=== PATIENT | female | born 1960 | race American Indian/Alaskan Native ===

== ENCOUNTER 2018-05-14 09:22 | Inpatient (IN) | payer OTHER ==
--- NOTE | 2018-05-14 09:41 | Cat Scan Report ---
CT HEAD WITHOUT CONTRAST: HISTORY: Neurological deficit. TECHNIQUE: Sequential 2.5mm CT images. COMPARISON: none. FINDINGS: Cerebral Parenchyma: Within normal limits. Cerebellum: Within normal limits. Brainstem: Within normal limits. Ventricles: Normal. Sella: Normal. Extra-axial spaces: Normal. Basal Cisterns: Normal. Intracranial Hemorrhage: None. Midline Shift: None. Calvarium: Normal. Sinuses: 2 cm mucous retention cyst in the inferior right maxillary sinus is partially imaged. The remaining sinuses are unremarkable. Mastoid Air Cells: Normal. Visualized Orbits: Normal. IMPRESSION: Cranial CT scan within normal limits. These findings were discussed with Dr. Padgett in the emergency department at 0936 hours.
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
[2018-05-14 09:48] LABS: Basophils # (Auto) 0.1 K/mm3 (0.0-0.1); Eosinophils # (Auto) 0.2 K/mm3 (0.0-0.4); Eosinophils % (Auto) 4.4 % (0.0-4.3); Hematocrit 38.3 % (30.3-42.9); Hemoglobin 12.6 gm/dl (10.1-14.3); Lymphocytes # (Auto) 1.4 K/mm3 (1.2-5.4); Lymphocytes % (Auto) 24.7 % (13.4-35.0); Mean Corpuscular HGB Conc 33 % (30-34); Mean Corpuscular Volume 85 fl (79-97); Monocytes # (Auto) 0.4 K/mm3 (0.0-0.8); Monocytes % (Auto) 7.1 % (0.0-7.3); Platelet Count 279 K/mm3 (140-440); Red Cell Distribution Width 13.2 % (13.2-15.2)
[2018-05-14 09:58] LABS: INR 0.91 (0.87-1.13); Partial Thromboplastin Time 26.3 Sec. (24.2-36.6)
[2018-05-14 09:59] LABS: Thrombin Time 16.3 Sec. (15.1-19.6)
[2018-05-14 10:09] LABS: BUN/Creatinine Ratio 13; Blood Urea Nitrogen 20 mg/dL (7-17); Calcium 9.5 mg/dL (8.4-10.2); Hemolysis Index 12
[2018-05-14] MEDS ORDERED: NACL 0.9% IV ONE (10:19)
[2018-05-14] MEDS ORDERED: ACTIVASE IV ONE ×2 (10:19)
--- NOTE | 2018-05-14 12:07 | Cat Scan Report ---
CTA NECK: HISTORY: Acute CVA. TECHNIQUE: Helical CT following IV contrast. Sagittal and coronal reformatted images. 3D volume rendering technique. Stenosis was calculated using NASCET criteria. FINDINGS: The visualized aortic arch, innominate artery and proximal bilateral subclavian arteries are widely patent with less than 20% stenosis. Within the right carotid system: Less than 20% stenosis. Within the left carotid system: Less than 20% stenosis. The cervical vertebral arteries are patent with less than 20% stenosis. The right vertebral artery is dominant. IMPRESSION: Unremarkable CTA of the neck.
--- NOTE | 2018-05-14 12:12 | Cat Scan Report ---
CTA HEAD: HISTORY: Acute CVA. TECHNIQUE: Helical CT images after IV contrast with 0.625mm reformations. Sagittal and coronal reformats. Rotational MIP images. 3D volume rendering technique. FINDINGS: The arterial structures of the anterior and posterior circulations are patent throughout. No evidence for stenosis, occlusion or aneurysm. The right vertebral artery is dominant. The basilar artery is ectatic but patent. IMPRESSION: Unremarkable CTA head. No evidence for large vessel occlusion, dissection or aneurysm.
[2018-05-14] MEDS ORDERED: NORMODYNE IV ONE ×2 (13:33→13:38)
--- NOTE | 2018-05-14 21:32 | Event Note ---
Date: 05/14/18 See Dictated H/p in reports Acute CVA HIV
[2018-05-15] MEDS ORDERED: DILAUDID IV PRN (01:27)
[2018-05-15] MEDS ORDERED: ZOFRAN IV PRN (01:27)
[2018-05-15] MEDS ORDERED: SODIUM CHLORIDE FLUSH SYRINGE 10 ML IV PRN ×2 (01:27→01:29)
[2018-05-15] MEDS ORDERED: PERCOCET 5/325 PO PRN (01:27)
[2018-05-15] MEDS ORDERED: TYLENOL PO PRN (01:27)
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
[2018-05-15] MEDS: KEPPRA PO SCH ×3 (08:14→21:17)
[2018-05-15] MEDS: PREZISTA PO SCH ×3 (08:14→21:17)
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
--- NOTE | 2018-05-15 09:58 | Progress Note ---
Assessment and Plan Assessment and plan: --Acute CVA; s/p TPA continue current management Aspirin and DVT prophylaxis 24 hours after TPA, Follow neurology evaluation and recommendations MRI MRA this at the neuro workup Physical therapy and occupational therapy rehabilitation --Acute kidney injury; vasomotor nephropathy, gentle hydration, monitor renal function Avoid nephrotoxins --History of seizure disorder ; seizure precautions, continue antiepileptic medications and --History of HIV; continue current management, consult ID for assistance --Hypertension; moderate control, continue current antihypertensives and PRN meds --Dyslipidemia; continue statin. --DVT prophylaxis; Lovenox after 24 hours post TPA Discharge planning case management Closely monitor the patient and adjust the management as needed Critical care time 35 minutes The high probability of a clinically significant, sudden or life threatening deterioration of the [ Neuro, renal, ID and metabolic ] system(s) required my full and direct attention, intervention and personal management.The aggregate critical care time was [35 ] minutes. This time is in addition to time spent performing reported procedures but includes the following: [x] Data Review and interpretation [x] Patient assessment and monitoring of vital signs [x] Documentation [x] Medication orders and management History Interval history: Patient seen and examined medical records reviewed Patient was admitted with acute CVA status post TPA, also has history of HIV, seizures Patient alert and awake slow speech and not in acute distress Vital Signs reviewed Pending neurology evaluation Hospitalist Physical - Constitutional Vitals: Temp Pulse Resp BP Pulse Ox 98.6 F 115 H 10 L 148/96 99 05/15/18 08:00 05/15/18 08:30 05/15/18 08:30 05/15/18 08:30 05/15/18 08:30 General appearance: Present: no acute distress, cachectic, other (slow speech) - EENT Eyes: Present: PERRL, EOM intact - Neck Neck: Present: supple, normal ROM - Respiratory Respiratory effort: normal Respiratory: bilateral: diminished, negative: rales, rhonchi, wheezing - Cardiovascular Rhythm: regular Heart Sounds: Present: S1 & S2 - Extremities Extremities: no ischemia, No edema - Abdominal General gastrointestinal: soft, non-tender, non-distended, normal bowel sounds - Integumentary Integumentary: Present: clear, warm - Psychiatric Psychiatric: appropriate mood/affect, other (she minimally communicative) - Neurologic Neurologic: other (minimal left-sided weakness, slow speech) Results - Labs CBC & Chem 7: 05/14/18 09:39 05/14/18 09:39 Labs: Laboratory Last Values WBC 5.6 K/mm3 (4.5-11.0) 05/14/18 09:39 RBC 4.50 M/mm3 (3.65-5.03) 05/14/18 09:39 Hgb 12.6 gm/dl (10.1-14.3) 05/14/18 09:39 Hct 38.3 % (30.3-42.9) 05/14/18 09:39 MCV 85 fl (79-97) 05/14/18 09:39 MCH 28 pg (28-32) 05/14/18 09:39 MCHC 33 % (30-34) 05/14/18 09:39 RDW 13.2 % (13.2-15.2) 05/14/18 09:39 Plt Count 279 K/mm3 (140-440) 05/14/18 09:39 Lymph % (Auto) 24.7 % (13.4-35.0) 05/14/18 09:39 [place] % (Auto) 7.1 % (0.0-7.3) 05/14/18 09:39 Eos % (Auto) 4.4 % (0.0-4.3) H 05/14/18 09:39 Baso % (Auto) 1.0 % (0.0-1.8) 05/14/18 09:39 Lymph # 1.4 K/mm3 (1.2-5.4) 05/14/18 09:39 [place] # 0.4 K/mm3 (0.0-0.8) 05/14/18 09:39 Eos # 0.2 K/mm3 (0.0-0.4) 05/14/18 09:39 Baso # 0.1 K/mm3 (0.0-0.1) 05/14/18 09:39 Seg Neutrophils % 62.8 % (40.0-70.0) 05/14/18 09:39 Seg Neutrophils # 3.5 K/mm3 (1.8-7.7) 05/14/18 09:39 PT 12.8 Sec. (12.2-14.9) 05/14/18 09:39 INR 0.91 (0.87-1.13) 05/14/18 09:39 APTT 26.3 Sec. (24.2-36.6) 05/14/18 09:39 Thrombin Time 16.3 Sec. (15.1-19.6) 05/14/18 09:39 Sodium 138 mmol/L (137-145) 05/14/18 09:39 Potassium 4.5 mmol/L (3.6-5.0) 05/14/18 09:39 Chloride 97.5 mmol/L (98-107) L 05/14/18 09:39 Carbon Dioxide 27 mmol/L (22-30) 05/14/18 09:39 Anion Gap 18 mmol/L 05/14/18 09:39 BUN 20 mg/dL (7-17) H 05/14/18 09:39 Creatinine 1.6 mg/dL (0.7-1.2) H 05/14/18 09:39 Estimated GFR 33 ml/min 05/14/18 09:39 BUN/Creatinine Ratio 13 % 05/14/18 09:39 Glucose 113 mg/dL (65-100) H 05/14/18 09:39 Hemoglobin A1c 5.6 % (4-6) 05/15/18 05:28 Calcium 9.5 mg/dL (8.4-10.2) 05/14/18 09:39 Troponin T < 0.010 ng/mL (0.00-0.029) 05/14/18 09:39
[2018-05-15] MEDS ORDERED: NORVIR PO SCH (10:00)
[2018-05-15] MEDS ORDERED: TIVICAY PO SCH (10:00)
[2018-05-15] MEDS: COZAAR PO SCH (10:28)
[2018-05-15] MEDS: NORVASC PO SCH (10:28)
[2018-05-15] MEDS: K-DUR PO SCH (10:28)
[2018-05-15] MEDS: SODIUM CHLORIDE FLUSH SYRINGE 10 ML IV SCH ×2 (10:30→21:18)
[2018-05-15] MEDS: PEPCID PO SCH ×2 (10:30→21:17)
[2018-05-15] MEDS: ROCALTROL PO SCH (10:30)
--- NOTE | 2018-05-15 12:01 | Consultation ---
History of Present Illness - Reason for Consult Consult date: 05/15/18 HIV, CVA Requesting physician: LARRY PARKER - History of Present Illness The patient is a 57-year-old female with HIV, hypertension, seizure disorder who was admitted to the emergency room yesterday with suspicion for stroke-like symptoms. Apparently, the patient was at a neurologist appointment when she developed an acute onset speech deficit and hence brought to our ER. Here, she was evaluated and due to concerns for a possible CVA, she received TPA and was admitted to the ICU. ID was consulted due to her history of HIV. Patient currently is afebrile, denies any specific complaints, she is able to talk but she is not the best of historians and wanted me to talk to her . I talked to her on the phone who provided me the names of her HIV medications, she is on Darunavir boosted with Norvir twice a day, she is also on dolutegravir twice a day. Apparently, she follows up with an infectious disease physician at [place] and her HIV has been well controlled. Her last viral load w as undetectable and CD4 count was 409 in October 2017. She follows up with her HIV provider every 6 months. He otherwise denies any recent fevers or chills in the patient. No nausea or vomiting. No loose watery stools. Recent outside records were reviewed, it seems patient had an MRI brain with and without contrast on 05/05/2018 which showed no acute intracranial abnormality. It showed some nonspecific pattern of bilateral FLAIR and T2 white matter hyperintensities consistent with nonspecific microangiopathy. There was also slight mastoiditis on the right side. Review of Systems: General: no fevers,chills or rigors HEENT: no new visual disturbance Respiratory: No cough, sputum, hemoptysis or shortness of breath Cardiovascular: No chest pain, syncope Gastrointestinal: No nausea, vomiting or diarrhea Genitourinary: No dysuria or hematuria Musculoskeletal: No new or worsening neck pain or back pain Neurologic: No headaches, no new seizures Hematologic: No easy bruising or bleeding Endocrine: No night sweats or acute weight loss Skin: negative for rash, jaundice Psychiatric: No suicidal or homicidal ideation Past History Past Medical History: seizures, other (HIV) Medications and Allergies Allergies Allergy/AdvReac Type Severity Reaction Status Date / Time No Known Allergies Allergy Unverified 05/14/18 09:27 Home Medications Medication Instructions Recorded Confirmed Last Taken Type Calcitriol [Rocaltrol] 0.25 mcg PO QDAY 05/14/18 05/14/18 Unknown History Darunavir [Prezista] 600 mg PO BID 05/14/18 05/14/18 Unknown History Dolutegravir [Tivicay] 50 mg PO QDAY 05/14/18 05/14/18 Unknown History Ergocalciferol [Vitamin D2] 1 cap PO QWEEK 05/14/18 05/14/18 Unknown History Losartan [Cozaar] 50 mg PO QDAY 05/14/18 05/14/18 Unknown History Potassium Chloride [K-Dur] 20 meq PO QDAY 05/14/18 05/14/18 Unknown History Pravastatin [Pravachol (Nf)] 40 mg PO QHS 05/14/18 05/14/18 Unknown History Ritonavir [Norvir] 100 mg PO QDAY 05/14/18 05/14/18 Unknown History amLODIPine [Norvasc] 10 mg PO DAILY 05/14/18 05/14/18 Unknown History levETIRAcetam [Keppra TAB] 500 mg PO BID 05/14/18 05/14/18 Unknown History Active Meds: Active Medications Acetaminophen (Tylenol) 650 mg PO Q4H PRN PRN Reason: Pain MILD(1-3)/Fever >100.5/FISHER Amlodipine Besylate (Norvasc) 10 mg PO DAILY [facility] Last Admin: 05/15/18 10:28 Dose: 10 mg Documented by: Calcitriol (Rocaltrol) 0.25 mcg PO QDAY [facility] Last Admin: 05/15/18 10:30 Dose: 0.25 mcg Documented by: Darunavir (Prezista) 600 mg PO BID [facility] Last Admin: 05/15/18 10:29 Dose: 600 mg Documented by: Famotidine (Pepcid) 20 mg PO BID [facility] Last Admin: 05/15/18 10:30 Dose: 20 mg Documented by: Hydromorphone HCl (Dilaudid) 0.5 mg IV Q3H PRN PRN Reason: Pain , Severe (7-10) Levetiracetam (Keppra) 500 mg PO BID [facility] Last Admin: 05/15/18 10:28 Dose: 500 mg Documented by: Losartan Potassium (Cozaar) 50 mg PO QDAY [facility] Last Admin: 05/15/18 10:28 Dose: 50 mg Documented by: Ondansetron HCl (Zofran) 4 mg IV Q8H PRN PRN Reason: Nausea And Vomiting Oxycodone/Acetaminophen (Percocet 5/325) 1 tab PO Q6H PRN PRN Reason: Pain, Moderate (4-6) Potassium Chloride (K-Dur) 20 meq PO QDAY [facility] Last Admin: 05/15/18 10:28 Dose: 20 meq Documented by: Ritonavir (Norvir) 100 mg PO BID [facility] Sodium Chloride (Sodium Chloride Flush Syringe 10 Ml) 10 ml IV BID [facility] Last Admin: 05/15/18 10:30 Dose: 10 ml Documented by: Sodium Chloride (Sodium Chloride Flush Syringe 10 Ml) 10 ml IV PRN PRN PRN Reason: LINE FLUSH Sodium Chloride (Sodium Chloride Flush Syringe 10 Ml) 10 ml IV PRN PRN PRN Reason: LINE FLUSH Physical Examination - Physical Exam Narrative exam: Physical Exam: Constitutional: Alert, cooperative. No acute distress Head, Ears, Nose: Normocephalic, atraumatic. External ears, nose normal Eyes: Conjunctivae/corneas clear. No icterus. No ptosis. Neck: Supple, no meningeal signs Oral: no ulcers, no thrush Cardiovascular: S1, S2 normal. Respiratory: Good air entry, clear to auscultation bilaterally GI: Soft, non-tender; bowel sounds normal. No peritoneal signs Musculoskeletal: No pedal edema, no cyanosis. Skin: No rash or abscess Hem/Lymphatic: No palpable cervical or supraclavicular nodes. No lymphangitis Psych: Mood ok. Affect normal Neurological: Awake, alert, answering basic questions. - Constitutional Vitals: Vital Signs Temp Pulse Resp BP Pulse Ox 98.6 F 103 H 13 131/84 99 05/15/18 08:00 05/15/18 11:30 05/15/18 11:30 05/15/18 11:30 05/15/18 11:30 Temperature -Last 24 Hours Temperature 98.6 F Temperature 98.4 F Temperature 98.2 F Temperature 98.7 F Temperature 98.7 F Results - Labs CBC & Chem 7: 05/14/18 09:39 02/14/19 09:39 - Imaging and Cardiology CT Scan - head: report reviewed, image reviewed (no acute findings noted.) Assessment and Plan Cultures: None this admission A/P: 57-year-old female with HIV, hypertension, seizure disorder admitted with ?CVA: #1 HIV: Well controlled on meds. We will restart her antiretroviral medications. It seems she is on a nuc-sparing regimen, possibly could be due to renal issues (creatinine here is 1.6) as well as previous resistance mutations. She follows up with an infectious disease physician at [place] and her HIV has been well controlled. Her last viral load was undetectable and CD4 count was 409 in October 2017. #2 Altered mental status versus acute CVA: Patient appears to be at baseline. Initial CT head and CTA without any acute abnormalities. PML can mimic a CVA in patients with HIV, however, unlikely to develop in patient with good CD4 count and recent MRI from 05/05/2018 did not show any findings concerning for PML (which is more of a sub-acute process). Await neurology evaluation. #3 TOMMIE v/s CKD: creatinine 1.6. Current HIV regimen does not need renal adjustment. Recs: - restarted her home HIV regimen: darunavir 600 mg BID, ritonavir 100 mg BID and dolutegravir 50 mg BID - watch for drug interactions especially since she is on PIs (protease inhibitors) - PML seems unlikely d/w Dr. Parker. MD [facility] C: [phone] O: [phone] F: [phone]
[2018-05-15] MEDS: TIVICAY PO SCH ×2 (13:00→21:18)
--- NOTE | 2018-05-15 15:11 | Magnetic Resonance Report ---
MRI OF THE BRAIN WITHOUT CONTRAST: HISTORY: Stroke PROCEDURE: Multiplanar, multisequence MR imaging of the brain without IV contrast was performed. FINDINGS: Compared to the CT head dated 05/14/18. Very subtle cortical diffusion restriction is identified on the left parietal lobe. There is subtle decreased signal on the ADC map in this area. There is no evidence for hemorrhage, mass or extra-axial fluid collection. No chronic infarct. Mild to moderate nonspecific chronic white matter changes are noted. The midline structures are central. The basal cisterns are patent. Normal ventricular size. The orbital cavities and sella turcica demonstrate no abnormality. 2 cm mucous retention cyst in the right maxillary sinus is noted. There is partial opacification of the inferior right mastoid air cells. IMPRESSION: Subtle subacute cortical ischemia suspected in the left parietal lobe. Chronic white matter changes.
--- NOTE | 2018-05-15 15:13 | Magnetic Resonance Report ---
MRA HEAD WITHOUT CONTRAST HISTORY: Stroke. [id number] imaging with MIP reformations of the [place] of [place] is submitted. The arteries appear widely patent and free of hemodynamically significant stenosis, aneurysm or dissection. IMPRESSION: Unremarkable MRA head.
[2018-05-15] MEDS: NORVIR PO SCH ×2 (16:14→21:17)
--- NOTE | 2018-05-15 17:47 | Progress Note ---
Subjective Date of service: 05/15/18 Interval history: normal neuro exam and patient fully alert stroke scale at zero and done well post tPA explained to nurses she can go to telemetry Objective - Vital Sign Vital Signs - 12hr 05/15/18 05/15/18 05/15/18 06:00 06:30 07:00 Temperature Pulse Rate 79 80 76 Pulse Rate [ From Monitor] Pulse Rate [ 78 78 Right Arm] Respiratory 16 14 16 Rate Respiratory 14 14 Rate [Right Arm ] Blood Pressure 135/78 134/78 135/81 Blood Pressure 135/78 135/81 [Right Arm] O2 Sat by Pulse 99 100 100 Oximetry O2 Sat by Pulse 100 100 Oximetry [ Right Arm] 05/15/18 05/15/18 05/15/18 07:27 07:30 08:00 Temperature 98.6 F Pulse Rate 87 98 H Pulse Rate [ 85 From Monitor] Pulse Rate [ Right Arm] Respiratory 14 12 Rate Respiratory Rate [Right Arm ] Blood Pressure 135/82 133/80 Blood Pressure [Right Arm] O2 Sat by Pulse 100 100 100 Oximetry O2 Sat by Pulse 100 Oximetry [ Right Arm] 05/15/18 05/15/18 05/15/18 08:30 09:00 09:30 Temperature Pulse Rate 115 H 92 H 100 H Pulse Rate [ From Monitor] Pulse Rate [ Right Arm] Respiratory 10 L 11 L 13 Rate Respiratory Rate [Right Arm ] Blood Pressure 148/96 132/76 136/85 Blood Pressure [Right Arm] O2 Sat by Pulse 99 99 98 Oximetry O2 Sat by Pulse 100 Oximetry [ Right Arm] 05/15/18 05/15/18 05/15/18 10:00 10:28 10:30 Temperature Pulse Rate 92 H 98 H 97 H Pulse Rate [ From Monitor] Pulse Rate [ Right Arm] Respiratory 18 14 Rate Respiratory Rate [Right Arm ] Blood Pressure 136/86 136/86 130/95 Blood Pressure [Right Arm] O2 Sat by Pulse 98 99 Oximetry O2 Sat by Pulse 100 Oximetry [ Right Arm] 05/15/18 05/15/18 05/15/18 11:00 11:30 12:00 Temperature 98.9 F Pulse Rate 79 103 H 94 H Pulse Rate [ 95 H From Monitor] Pulse Rate [ Right Arm] Respiratory 15 13 16 Rate Respiratory Rate [Right Arm ] Blood Pressure 137/78 131/84 134/88 Blood Pressure [Right Arm] O2 Sat by Pulse 99 99 100 Oximetry O2 Sat by Pulse 100 100 Oximetry [ Right Arm] 05/15/18 05/15/18 05/15/18 12:30 13:00 13:38 Temperature Pulse Rate 112 H 104 H Pulse Rate [ From Monitor] Pulse Rate [ Right Arm] Respiratory 12 Rate Respiratory Rate [Right Arm ] Blood Pressure 117/71 117/71 Blood Pressure [Right Arm] O2 Sat by Pulse 98 33 L Oximetry O2 Sat by Pulse 100 Oximetry [ Right Arm] 05/15/18 05/15/18 05/15/18 14:00 14:30 15:00 Temperature Pulse Rate 128 H 110 H 104 H Pulse Rate [ From Monitor] Pulse Rate [ Right Arm] Respiratory 25 H 19 28 H Rate Respiratory Rate [Right Arm ] Blood Pressure 117/71 117/71 117/63 Blood Pressure [Right Arm] O2 Sat by Pulse 99 100 100 Oximetry O2 Sat by Pulse 100 100 Oximetry [ Right Arm] 05/15/18 05/15/18 05/15/18 15:30 16:00 16:30 Temperature 98.8 F Pulse Rate 95 H 122 H 97 H Pulse Rate [ 92 H From Monitor] Pulse Rate [ Right Arm] Respiratory 17 13 21 Rate Respiratory Rate [Right Arm ] Blood Pressure 117/63 117/63 97/58 Blood Pressure [Right Arm] O2 Sat by Pulse 99 100 100 Oximetry O2 Sat by Pulse 100 Oximetry [ Right Arm] - Laboratory Findings CBC and BMP: 05/14/18 09:39 05/14/18 09:39 Abnormal Lab Findings: Abnormal Labs 05/14/18 05/14/18 09:39 09:39 Eos % (Auto) 4.4 H Chloride 97.5 L BUN 20 H Creatinine 1.6 H Glucose 113 H
--- NOTE | 2018-05-15 19:32 | Progress Note ---
Hospitalist Physical - Constitutional Vitals: Temp Pulse Resp BP Pulse Ox 98.8 F 126 H 25 H 102/63 100 05/15/18 16:00 05/15/18 18:30 05/15/18 18:30 05/15/18 18:30 05/15/18 18:30 General appearance: Present: no acute distress, cachectic, other (slow speech) Results - Labs CBC & Chem 7: 05/14/18 09:39 05/14/18 09:39 Labs: Laboratory Last Values WBC 5.6 K/mm3 (4.5-11.0) 05/14/18 09:39 RBC 4.50 M/mm3 (3.65-5.03) 05/14/18 09:39 Hgb 12.6 gm/dl (10.1-14.3) 05/14/18 09:39 Hct 38.3 % (30.3-42.9) 05/14/18 09:39 MCV 85 fl (79-97) 05/14/18 09:39 MCH 28 pg (28-32) 05/14/18 09:39 MCHC 33 % (30-34) 05/14/18 09:39 RDW 13.2 % (13.2-15.2) 05/14/18 09:39 Plt Count 279 K/mm3 (140-440) 05/14/18 09:39 Lymph % (Auto) 24.7 % (13.4-35.0) 05/14/18 09:39 [place] % (Auto) 7.1 % (0.0-7.3) 05/14/18 09:39 Eos % (Auto) 4.4 % (0.0-4.3) H 05/14/18 09:39 Baso % (Auto) 1.0 % (0.0-1.8) 05/14/18 09:39 Lymph # 1.4 K/mm3 (1.2-5.4) 05/14/18 09:39 [place] # 0.4 K/mm3 (0.0-0.8) 05/14/18 09:39 Eos # 0.2 K/mm3 (0.0-0.4) 05/14/18 09:39 Baso # 0.1 K/mm3 (0.0-0.1) 05/14/18 09:39 Seg Neutrophils % 62.8 % (40.0-70.0) 05/14/18 09:39 Seg Neutrophils # 3.5 K/mm3 (1.8-7.7) 05/14/18 09:39 PT 12.8 Sec. (12.2-14.9) 05/14/18 09:39 INR 0.91 (0.87-1.13) 05/14/18 09:39 APTT 26.3 Sec. (24.2-36.6) 05/14/18 09:39 Thrombin Time 16.3 Sec. (15.1-19.6) 05/14/18 09:39 Sodium 138 mmol/L (137-145) 05/14/18 09:39 Potassium 4.5 mmol/L (3.6-5.0) 05/14/18 09:39 Chloride 97.5 mmol/L (98-107) L 05/14/18 09:39 Carbon Dioxide 27 mmol/L (22-30) 05/14/18 09:39 Anion Gap 18 mmol/L 05/14/18 09:39 BUN 20 mg/dL (7-17) H 05/14/18 09:39 Creatinine 1.6 mg/dL (0.7-1.2) H 05/14/18 09:39 Estimated GFR 33 ml/min 05/14/18 09:39 BUN/Creatinine Ratio 13 % 05/14/18 09:39 Glucose 113 mg/dL (65-100) H 05/14/18 09:39 Hemoglobin A1c 5.6 % (4-6) 05/15/18 05:28 Calcium 9.5 mg/dL (8.4-10.2) 05/14/18 09:39 Troponin T < 0.010 ng/mL (0.00-0.029) 05/14/18 09:39
[2018-05-16 05:00] LABS: Basophils % (Auto) 1.1 % (0.0-1.8); Eosinophils # (Auto) 0.3 K/mm3 (0.0-0.4); Eosinophils % (Auto) 5.6 % (0.0-4.3); Hematocrit 37.5 % (30.3-42.9); Hemoglobin 12.2 gm/dl (10.1-14.3); Lymphocytes # (Auto) 1.7 K/mm3 (1.2-5.4); Lymphocytes % (Auto) 36.4 % (13.4-35.0); Mean Corpuscular HGB Conc 33 % (30-34); Mean Corpuscular Volume 87 fl (79-97); Monocytes # (Auto) 0.4 K/mm3 (0.0-0.8); Monocytes % (Auto) 8.7 % (0.0-7.3); Platelet Count 270 K/mm3 (140-440); Red Cell Distribution Width 13.2 % (13.2-15.2)
[2018-05-16 05:25] LABS: Calcium 8.8 mg/dL (8.4-10.2); Chol/HDL Ratio 3.66 %
[2018-05-16] MEDS: K-DUR PO SCH (10:53)
[2018-05-16] MEDS: PEPCID PO SCH ×2 (10:53→23:11)
[2018-05-16] MEDS: KEPPRA PO SCH ×2 (10:53→23:11)
[2018-05-16] MEDS: PREZISTA PO SCH ×2 (10:54→23:11)
[2018-05-16] MEDS: ROCALTROL PO SCH (10:54)
[2018-05-16] MEDS: TIVICAY PO SCH ×2 (10:54→23:12)
[2018-05-16] MEDS: ASPIRIN PO SCH (10:54)
[2018-05-16] MEDS: NORVIR PO SCH ×2 (10:55→23:11)
[2018-05-16] MEDS: SODIUM CHLORIDE FLUSH SYRINGE 10 ML IV SCH ×2 (10:56→23:12)
[2018-05-16] MEDS: COZAAR PO SCH (10:58)
[2018-05-16] MEDS: NORVASC PO SCH (10:59)
--- NOTE | 2018-05-16 12:37 | Progress Note ---
Assessment and Plan Assessment and plan: --Acute CVA; s/p TPA continue current management Aspirin and DVT prophylaxis 24 hours after TPA, Follow neurology evaluation and recommendations MRI MRA this at the neuro workup Physical therapy and occupational therapy rehabilitation Neuro workup; CT head without contrast; normal study CTA head; unremarkable CTA neck; normal study MRI brain; subtlet subacute cortical ischemia suspected in the left parietal lobe chronic white matter changes, chronic right matter changes MRA brain.; Normal study Carotid Doppler; Echocardiogram; EF 35- 40% no shunt, no thrombus, --Metabolic encephalopathy; present on admission, mild improvement Patient is still slow and confused sometimes, due to underlying disease process Closely monitor --Acute kidney injury; vasomotor nephropathy, gentle hydration, monitor renal function Avoid nephrotoxins --History of seizure disorder ; seizure precautions, continue antiepileptic medications and --History of HIV; continue current management, consult ID for assistance --Hypertension; moderate control, continue current antihypertensives and PRN meds --Dyslipidemia; continue statin. --DVT prophylaxis; Lovenox after 24 hours post TPA Discharge planning case management Closely monitor the patient and adjust the management as needed Possible discharge in 1-2 days if stable History Interval history: Patient seen and examined medical records reviewed No new events reported by the nursing Patient is sitting in chair Not in acute distress Vital signs reviewed Hospitalist Physical - Constitutional Vitals: Temp Pulse Resp BP Pulse Ox 98.9 F 110 H 16 102/62 99 05/16/18 09:11 05/16/18 10:59 05/16/18 10:00 05/16/18 10:59 05/16/18 10:00 General appearance: Present: no acute distress, cachectic, other (slow speech) - EENT Eyes: Present: PERRL, EOM intact - Neck Neck: Present: supple, normal ROM - Respiratory Respiratory effort: normal Respiratory: bilateral: diminished, negative: rales, rhonchi, wheezing - Cardiovascular Rhythm: regular Heart Sounds: Present: S1 & S2 - Extremities Extremities: no ischemia, No edema - Abdominal General gastrointestinal: soft, non-tender, non-distended, normal bowel sounds - Integumentary Integumentary: Present: clear, warm - Psychiatric Psychiatric: appropriate mood/affect, cooperative - Neurologic Neurologic: moves all extremities, other ( slow speech) Results - Labs CBC & Chem 7: 05/16/18 04:42 05/16/18 04:42 Labs: Laboratory Last Values WBC 4.6 K/mm3 (4.5-11.0) 05/16/18 04:42 RBC 4.30 M/mm3 (3.65-5.03) 05/16/18 04:42 Hgb 12.2 gm/dl (10.1-14.3) 05/16/18 04:42 Hct 37.5 % (30.3-42.9) 05/16/18 04:42 MCV 87 fl (79-97) 05/16/18 04:42 MCH 28 pg (28-32) 05/16/18 04:42 MCHC 33 % (30-34) 05/16/18 04:42 RDW 13.2 % (13.2-15.2) 05/16/18 04:42 Plt Count 270 K/mm3 (140-440) 05/16/18 04:42 Lymph % (Auto) 36.4 % (13.4-35.0) H 05/16/18 04:42 [place] % (Auto) 8.7 % (0.0-7.3) H 05/16/18 04:42 Eos % (Auto) 5.6 % (0.0-4.3) H 05/16/18 04:42 Baso % (Auto) 1.1 % (0.0-1.8) 05/16/18 04:42 Lymph # 1.7 K/mm3 (1.2-5.4) 05/16/18 04:42 [place] # 0.4 K/mm3 (0.0-0.8) 05/16/18 04:42 Eos # 0.3 K/mm3 (0.0-0.4) 05/16/18 04:42 Baso # 0.0 K/mm3 (0.0-0.1) 05/16/18 04:42 Seg Neutrophils % 48.2 % (40.0-70.0) 05/16/18 04:42 Seg Neutrophils # 2.2 K/mm3 (1.8-7.7) 05/16/18 04:42 PT 12.8 Sec. (12.2-14.9) 05/14/18 09:39 INR 0.91 (0.87-1.13) 05/14/18 09:39 APTT 26.3 Sec. (24.2-36.6) 05/14/18 09:39 Thrombin Time 16.3 Sec. (15.1-19.6) 05/14/18 09:39 Sodium 138 mmol/L (137-145) 05/16/18 04:42 Potassium 4.5 mmol/L (3.6-5.0) 05/16/18 04:42 Chloride 97.2 mmol/L (98-107) L 05/16/18 04:42 Carbon Dioxide 28 mmol/L (22-30) 05/16/18 04:42 Anion Gap 17 mmol/L 05/16/18 04:42 BUN 23 mg/dL (7-17) H 05/16/18 04:42 Creatinine 1.7 mg/dL (0.7-1.2) H 05/16/18 04:42 Estimated GFR 38 ml/min 05/16/18 04:42 BUN/Creatinine Ratio 14 % 05/16/18 04:42 Glucose 104 mg/dL (65-100) H 05/16/18 04:42 Hemoglobin A1c 5.6 % (4-6) 05/15/18 05:28 Calcium 8.8 mg/dL (8.4-10.2) 05/16/18 04:42 Phosphorus 2.80 mg/dL (2.5-4.5) 05/16/18 04:42 Magnesium 1.50 mg/dL (1.7-2.3) L 05/16/18 04:42 Troponin T < 0.010 ng/mL (0.00-0.029) 05/14/18 09:39 Triglycerides 140 mg/dL (2-149) 05/16/18 04:42 Cholesterol 205 mg/dL (50-199) H 05/16/18 04:42 LDL Cholesterol Direct 132 mg/dL (50-130) H 05/16/18 04:42 HDL Cholesterol 56 mg/dL (40-59) 05/16/18 04:42 Cholesterol/HDL Ratio 3.66 % 05/16/18 04:42
--- NOTE | 2018-05-16 13:53 | Progress Note ---
Assessment and Plan Cultures: None this admission A/P: 57-year-old female with HIV, hypertension, seizure disorder admitted with ?CVA: #1 HIV: Well controlled on meds. We will restart her antiretroviral medications. It seems she is on a nuc-sparing regimen, possibly could be due to renal issues (creatinine here is 1.6-1.7) as well as previous resistance mutations. She follows up with an infectious disease physician at [place] and her HIV has been well controlled. Her last viral load was undetectable and CD4 count was 409 in October 2017. #2 Sub-acute CVA: Neurology following. Unlikely to be PML. #3 CKD: creatinine 1.6-1.7. Current HIV regimen does not need renal adjustment. Recs: - continue home HIV regimen: darunavir 600 mg BID, ritonavir 100 mg BID and dolutegravir 50 mg BID - watch for drug interactions especially since she is on PIs (protease inhibitors) - upon discharge, follow up with her HIV provider at [place] Will sign off. Please call with questions. Eber Bullard MD [facility] C: [phone] O: [phone] F: [phone] Subjective Date of service: 05/16/18 Interval history: No fever. Sitting up in bed, no complaints. No nausea, vomiting. Denies any pain. Objective - Exam Narrative Exam: Physical Exam: Constitutional: Alert, cooperative. No acute distress Head, Ears, Nose: Normocephalic, atraumatic. External ears, nose normal Eyes: Conjunctivae/corneas clear. No icterus. No ptosis. Neck: Supple, no meningeal signs Oral: no ulcers, no thrush Cardiovascular: S1, S2 normal. Respiratory: Good air entry, clear to auscultation bilaterally GI: Soft, non-tender; bowel sounds normal. No peritoneal signs Musculoskeletal: No pedal edema, no cyanosis. Skin: No rash or abscess Hem/Lymphatic: No palpable cervical or supraclavicular nodes. No lymphangitis Psych: Mood ok. Affect normal Neurological: Awake, alert, - Constitutional Vitals: Vital Signs Temp Pulse Resp BP Pulse Ox 98.9 F 110 H 16 102/62 99 05/16/18 09:11 05/16/18 10:59 05/16/18 10:00 05/16/18 10:59 05/16/18 10:00 Temperature -Last 24 Hours Temperature 98.9 F Temperature 98.2 F Temperature 98.4 F Temperature 98.2 F Temperature 98.8 F - Labs CBC & Chem 7: 05/16/18 04:42 05/16/18 04:42 Labs: Abnormal lab results 05/16/18 05/16/18 Range/Units 04:42 04:42 Lymph % (Auto) 36.4 H (13.4-35.0) % [place] % (Auto) 8.7 H (0.0-7.3) % Eos % (Auto) 5.6 H (0.0-4.3) % Chloride 97.2 L (98-107) mmol/L BUN 23 H (7-17) mg/dL Creatinine 1.7 H (0.7-1.2) mg/dL Glucose 104 H (65-100) mg/dL Magnesium 1.50 L (1.7-2.3) mg/dL Cholesterol 205 H (50-199) mg/dL LDL Cholesterol Direct 132 H (50-130) mg/dL
[2018-05-16] MEDS ORDERED: NACL 0.9% 1000 ML 1,000 ML IV SCH (19:00)
[2018-05-17 09:22] VITALS: BP 121/72
[2018-05-17] MEDS: NORVASC PO SCH (09:24)
[2018-05-17] MEDS: PREZISTA PO SCH (09:24)
[2018-05-17] MEDS: ASPIRIN PO SCH (09:24)
[2018-05-17] MEDS: ROCALTROL PO SCH (09:24)
[2018-05-17] MEDS: K-DUR PO SCH (09:25)
[2018-05-17] MEDS: KEPPRA PO SCH (09:25)
[2018-05-17] MEDS: COZAAR PO SCH (09:26)
[2018-05-17] MEDS: NORVIR PO SCH (09:26)
[2018-05-17] MEDS: PEPCID PO SCH (09:26)
[2018-05-17] MEDS: TIVICAY PO SCH (09:27)
--- NOTE | 2018-05-17 10:51 | Progress Note ---
Subjective Date of service: 05/17/18 Interval history: complete resolution of neuro symptoms and no further attacks of weakness or seizures can be discharged and f/u with [employer] [facility] [employer] [facility] the ECH looks WNL and doubt there was sourse of embolus in the heart the MRA is normal the MRI showed celar cut early coritical subacute ischemic changes these have resoved and stroke scale is zero I reviewed sequece of events and clearly complicated case given HX of HIV... perhaps HIV related vasculitis Objective - Vital Sign Vital Signs - 12hr 05/17/18 05/17/18 05/17/18 00:11 05:24 09:05 Temperature 98.1 F 98.3 F 98.6 F Pulse Rate 101 H 96 H 88 Respiratory 12 12 16 Rate Blood Pressure 104/64 123/75 121/72 O2 Sat by Pulse 98 97 100 Oximetry 05/17/18 09:24 Temperature Pulse Rate 88 Respiratory Rate Blood Pressure 121/72 O2 Sat by Pulse Oximetry - Laboratory Findings CBC and BMP: 05/16/18 04:42 05/16/18 04:42 Abnormal Lab Findings: Abnormal Labs 05/14/18 05/14/18 05/16/18 09:39 09:39 04:42 Lymph % (Auto) 36.4 H [place] % (Auto) 8.7 H Eos % (Auto) 4.4 H 5.6 H Chloride 97.5 L BUN 20 H Creatinine 1.6 H Glucose 113 H Magnesium Cholesterol LDL Cholesterol Direct 05/16/18 04:42 Lymph % (Auto) [place] % (Auto) Eos % (Auto) Chloride 97.2 L BUN 23 H Creatinine 1.7 H Glucose 104 H Magnesium 1.50 L Cholesterol 205 H LDL Cholesterol Direct 132 H
--- NOTE | 2018-05-17 12:13 | Discharge Summary ---
Providers - Providers Date of Admission: 05/14/18 13:01 Date of discharge: 05/17/18 Attending physician: LARRY PARKER 05/14/18 13:03 Consult to Physician [CONS] Urgent Comment: Consulting Provider: FERNANDO CONN Physician Instructions: Reason For Exam: acute cva, tpa 05/15/18 01:30 Occupational Therapy Evaluate and Treat [CONS] Routine Comment: Reason For Exam: Neuro deficits Physical Therapy Evaluation and Treat [CONS] Routine Comment: Reason For Exam: Neuro deficits 05/15/18 09:56 Consult to Physician [CONS] Urgent Comment: Consulting Provider: HECTOR FRANCOIS Physician Instructions: Reason For Exam: neuro consult 05/15/18 10:59 Consult to Physician [CONS] Routine Comment: Consulting Provider: VICTOR MANUEL DAWSON Physician Instructions: Reason For Exam: HIV/Seizures/Ac CVA s/p Tpa Hospitalization Reason for admission: Seizure,altered level of consciousness/difficulty speaking Condition: Stable Pertinent studies: Neuro workup; CT head without contrast; normal study CTA head; unremarkable CTA neck; normal study MRI brain; subtlet subacute cortical ischemia suspected in the left parietal lobe chronic white matter changes, chronic right matter changes MRA brain.; Normal study Carotid Doppler; No significant stenosis Lt, Echocardiogram; EF 35- 40% no shunt, no thrombus, Hospital course: 57 yr old female pt with multiple medical problems was admitted through ER with seizure,AMS and inability to speak.Patient was in the window of TPA,received TPA admitted to ICU and TPA pathway followed. Had extensive neuro work up as mentioned above. Received PT,OT and ST.Evaluated by neurology Evaluated by ID,adv f/u with private ID/health dept upon discharge. Today patient is feeling better,no new complaints,vital signs reviewed Physical exam is unremarkable. Cleared by Neuro,ID. Stable at discharge. Discharge Diagnosis: --Acute CVA; s/p TPA received Aspirin and DVT prophylaxis 24 hours after TPA, neurology evaluated, neuro workup, PT,OT,ST Neuro workup; CT head without contrast; normal study CTA head; unremarkable CTA neck; normal study MRI brain; subtlet subacute cortical ischemia suspected in the left parietal lobe chronic white matter changes, chronic right matter changes MRA brain.; Normal study Carotid Doppler; no significant stenosis. Echocardiogram; EF 35- 40% no shunt, no thrombus, --Metabolic encephalopathy; present on admission, mild improvement Patient is still slow and confused sometimes, due to underlying disease process --Acute kidney injury; vasomotor nephropathy, gentle hydration, Avoid nephrotoxins --History of seizure disorder ; seizure precautions, continue antiepileptic medications and --History of HIV; continue current management, consult ID for assistance --Hypertension; moderate control, continue current antihypertensives and PRN meds --Dyslipidemia; continue statin. --DVT prophylaxis; Lovenox after 24 hours post TPA f/u neuro,ID,PMD upon discharge. Speech therapy out pt if needed Disposition: DC-01 TO HOME OR SELFCARE Time spent for discharge: 32 min Core Measure Documentation - Palliative Care Palliative Care/ Comfort Measures: Not Applicable - Core Measures Any of the following diagnoses?: stroke - Stroke Discharge Requirements Statin for LDL = or >70 mg/dl on DC: Yes Anticoag for atrial fib/atrial flutter: Not Applicable (no afib/flutter) Antithrombotic for ischemic stroke: Yes Exam - Constitutional Vitals: Temp Pulse Resp BP Pulse Ox 98.6 F 88 16 121/72 100 05/17/18 09:05 05/17/18 09:24 05/17/18 09:05 05/17/18 09:24 05/17/18 09:05 General appearance: Present: no acute distress, well-nourished, other (slow speech) - EENT Eyes: Present: PERRL, EOM intact - Neck Neck: Present: supple, normal ROM - Respiratory Respiratory effort: normal Respiratory: bilateral: diminished, negative: rales, rhonchi, wheezing - Cardiovascular Rhythm: regular Heart Sounds: Present: S1 & S2 - Extremities Extremities: no ischemia, No edema - Abdominal General gastrointestinal: Present: soft, non-tender, non-distended, normal bowel sounds - Integumentary Integumentary: Present: clear, warm - Musculoskeletal Musculoskeletal: strength equal bilaterally, generalized weakness - Psychiatric Psychiatric: appropriate mood/affect, cooperative - Neurologic Neurologic: moves all extremities, other (slow speech) Plan Activity: advance as tolerated, fall precautions Diet: other (cardiac diet) Special Instructions: physical therapy (if needed) Additional Instructions: Advised to follow up with [place] neurologist in 1 week. Follow-up primary care physician in 3-5 days. Infectious diseases per scheduled Follow up with: PRIMARY CARE, [Referring] - 3-5 Days Prescriptions: Aspirin [Aspirin TAB] 325 mg PO QDAY #30 tablet
--- NOTE | 2018-05-17 18:11 | Consultation ---
ROOM NUMBER: [id number] HISTORY OF PRESENT ILLNESS: This 57-year-old black female admitted to [facility] initially on 07/22/2017. The patient was admitted to the hospital initially with the onset of losing her speech and developing right hemiparesis while at her neurologist's office. She has a known history of having HIV and seizures, then she has had stroke-like episodes in the past. She was transported to [facility] where she was initially assessed, had a tele-Neurology consult, did receive TPA. She had a negative CTA of the head and neck and subsequent MRI scan done did show area of diffusion abnormality in the left parietal occipital lobe over the distal course of middle cerebral artery, but was not consistent with a stroke that it was not diffusion weighted hyperintense, but rather a very subtle hyperemia with water balance abnormality, suggestive of subacute ischemia. Subsequent to admission of the patient's neurological condition, however, returned to normal, her speech came back, but she was left with some residual speech hesitancy, but from discussion with Dr. Chapin, this is a preexisting problem due to developmental problem. Neurologic examination with formally stroke scale of 0 at present time. She has no focal weakness. No sensory loss. Her visual coleman are full. Affect is appropriate. She is fully cooperative. IMPRESSION: This patient was successfully treated with TPA with resolution to baseline workup. 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 I do not see evidence of large vessel occlusive disease. Her echocardiogram showed some slight age-related changes of the valves, cardiac chambers. She may have a slight degree of elevated pressures on the right side of the heart, but this would not otherwise explain to her, the neurological sequelae that developed. Recommendation is she may be discharged home, followup with [place] neurologist. Recommend low-dose aspirin therapy, statin and continue treatment with HIV modifying therapy. This does appear to be a vascular complication of HIV, however. JOB# [id number] JOSIAS/DORENE
--- NOTE | 2018-05-18 14:17 | Vascular Lab Report ---
FINAL REPORT EXAM: VL CAROTID DUPLEX BILAT HISTORY: stroke TECHNIQUE: Ultrasound of the bilateral carotid arteries. Reported ICA Stenosis % per the NASCET crit ercosmo. PRIORS: CTA neck 05/14/2018 FINDINGS: PLAQUE DISTRIBUTION: Examination of the right side with limited as there is a right internal jugular venous catheter in place which obscures visualization of the right ICA. On the left, there is smooth mild homogeneous plaque present in the left internal carotid artery. VELOCITIES: RIGHT ICA peak systolic velocity (cm/sec): Not visualized ICA end diastolic velocity (cm/sec): Visualized CCA peak systolic velocity (cm/sec): 87 ECA peak systolic velocity (cm/sec): Not visualized ICA/CCA systolic velocity ratio (cm/sec): N/A Right vertebral: Antegrade ICA STENOSIS ESTIMATION: N/A % LEFT ICA peak systolic velocity (cm/sec): 64 ICA end diastolic velocity (cm/sec): 22 CCA peak systolic velocity (cm/sec): 101 ECA peak systolic velocity (cm/sec): 57 ICA/CCA systolic velocity ratio (cm/sec): 0.63 Left vertebral: Antegrade ICA STENOSIS ESTIMATION: < 50 % IMPRESSION: No clinically significant areas of stenosis noted on the left. ICA Stenosis % per the NASCET criteria is < 50 % on the left. Right side is limited to visualization due to the presence of a right inte rnal jugular venous catheter which obscures visualization of the underlying arterial system.
== END 2018-05-17 15:01 | disposition home or self-care (01) | DRG 61 ==
LOC: EDBD → ED 09:22 → CC1 13:01 → 4A 05-15 21:49
PROVIDERS: ADMIT Internal Medicine; ATTEND Internal Medicine
DX: I63.9 Cerebral infarction, unspecified (principal); G93.41 Metabolic encephalopathy; N17.0 Acute kidney failure with tubular necrosis; N17.9 Acute kidney failure, unspecified; G81.91 Hemiplegia, unspecified affecting right dominant side; R47.01 Aphasia; Z21 Asymptomatic human immunodeficiency virus [HIV] infection status; I77.6 Arteritis, unspecified; I10 Essential (primary) hypertension; R29.705 NIHSS score 5; G40.909 Epilepsy, unspecified, not intractable, without status epilepticus; Z82.49 Family history of ischemic heart disease and other diseases of the circulatory system
CPT/HCPCS: 36415; 70450; 70496; 70498; 70544; 70551; 80048; 80061; 82962; 83036; 83735; 84100; 84484; 85025; 85610; 85670; 85730; 93005; 93010; 93306; 93880; G0378; A9270-GY; J2997; Q9967